=== PATIENT | female | born 1935 | race Caucasian/White ===

== ENCOUNTER 2017-09-03 09:51 | Emergency (ER) | payer MEDICARE, MEDICAID ==
[2017-09-03 11:16] VITALS: BP 150/61
== END 2017-09-03 12:14 | disposition left against medical advice (07) ==
LOC: UCCORT 09:51
DX: R05 Cough (principal); Z53.21 Procedure and treatment not carried out due to patient leaving prior to being seen by health care provider

== ENCOUNTER 2017-09-03 12:45 | Emergency (ER) | payer MEDICARE, MEDICAID ==
[2017-09-03 16:41] VITALS: BP 141/61
--- NOTE | 2017-09-03 16:57 | UC ---
Skin Complaint HPI - HPI Summary HPI Summary: pt is accompanied by caregiver. caregiver reports that pt was observed scratching her head during the day. @. pt has "deep cough" throughout the day. No fever, or nasal congestion. - History of Current Complaint Chief Complaint: UCGeneralIllness Time Seen by Provider: 09/03/17 16:26 Stated Complaint: POSSIBLE LICE,COUGH Hx Obtained From: Family/Extender Hx From Patient Unobtainable Due To: Other - preexisting cognitive ability Hx Last Menstrual Period: n/a ?: No Onset/Duration: Sudden Onset - pruritic skin, Gradual Onset - cough, Lasting Days - cough Skin Exposure Onset/Duration: Days Ago Timing: Intermittent Episodes Lasting: Onset Severity: Mild Current Severity: Mild Character: Pruritus Aggravating Factor(s): Nothing Alleviating Factor(s): Unknown Associated Signs & Symptoms: Positive: Cough - Allergy/Home Medications Allergies/Adverse Reactions: Allergies Allergy/AdvReac Type Severity Reaction Status Date / Time No Known Allergies Allergy Verified 09/03/17 16:23 Home Medications: Home Medications Acetaminophen [Acetaminophen Extra Stren] 500 mg PO Q4H PRN 09/03/17 [History Confirmed 09/03/17] Ibuprofen TAB* [Advil TAB*] 200 mg PO Q6H PRN 09/03/17 [History Confirmed ] Melatonin 3 mg PO BEDTIME 09/03/17 [History Confirmed 09/03/17] Review of Systems Constitutional: Negative Skin: Other - scratching scalp, concern for lice Eyes: Negative ENT: Negative Respiratory: Cough Cardiovascular: Negative Gastrointestinal: Negative Genitourinary: Negative Motor: Negative Neurovascular: Negative Musculoskeletal: Negative Neurological: Negative Psychological: Negative Is Patient Immunocompromised?: No All Other Systems Reviewed And Are Negative: Yes PMH/Surg Hx/FS Hx/Imm Hx Previously Healthy: Yes Psychological History: Other - prexisting cognitive dysfunction Other Psychological History: preexisting cognitive dysfunction - Surgical History Surgical History: None Surgery Procedure, Year, and Place: UNKNOWN - Family History Known Family History: Positive: Cardiac Disease - Social History Occupation: Disabled Lives: Nursing Home Alcohol Use: None Substance Use Type: None Smoking Status (MU): Never Smoked Tobacco Have You Smoked in the Last Year: No - Immunization History Most Recent Tetanus Shot: 2007 Vaccination Up to Date: Yes Physical Exam Triage Information Reviewed: Yes Appearance: Well-Appearing Vital Signs: Initial Vital Signs Pulse 92 09/03/17 16:36 Resp 22 09/03/17 16:36 BP 141/61 09/03/17 16:36 Pulse Ox 99 09/03/17 16:36 Vital Signs Reviewed: Yes Eye Exam: Normal ENT Exam: Normal Respiratory Exam: Other Respiratory: Positive: Normal breath sounds, No respiratory distress Cardiovascular Exam: Normal Musculoskeletal Exam: Other Musculoskeletal: Positive: ROM Limited @ - generalized Neurological Exam: Normal Neurological: Positive: Other: - preexisitng Psychological Exam: Other - at baseline Skin Exam: Normal Course/Dx - Differential Diagnoses - Skin Complaint Differential Diagnoses: Other - itchy skin - Diagnoses Provider Diagnoses: cough- viral syndrome. itchy skin-scalp Discharge - Discharge Plan Condition: Stable Disposition: HOME Patient Education Materials: Itchy Skin (ED), Acute Cough (ED) Referrals: Judit Braxton MD [Primary Care Provider] - If Needed
== END 2017-09-03 16:56 | disposition home or self-care (01) ==
LOC: UCCORT 12:45
DX: B34.9 Viral infection, unspecified (principal); R05 Cough; L29.9 Pruritus, unspecified; G31.84 Mild cognitive impairment of uncertain or unknown etiology
CPT/HCPCS: 99211; G0463

== ENCOUNTER 2018-05-17 15:01 | Emergency (ER) | payer MEDICARE, MEDICAID ==
[2018-05-17 16:07] VITALS: BP 142/70
--- NOTE | 2018-05-17 16:21 | UC ---
Respiratory Complaint HPI - HPI Summary HPI Summary: One day of productive cough.skilled nursing resident, here with an aide who has only been with her since noon. Hx of COPD with regular use of inhalers--pulmicort and albuterol. No fever, preceding URI, vomiting or diarrhea. No infectious exposure and no other residents have a similar illness. Mild decrease in appetite noted. Does not at this time have an advance directive. - History of Current Complaint Chief Complaint: UCRespiratory Stated Complaint: COUGH Time Seen by Provider: 05/17/18 15:53 Hx Obtained From: Family/[employer] Hx Last Menstrual Period: n/a Onset/Duration: Sudden Onset, Lasting Hours - onset this morning. Timing: Intermittent Episodes Severity Initially: Mild Severity Currently: Mild Pain Intensity: 0 Character: Cough: Productive Aggravating Factors: Nothing Alleviating Factors: Bronchodilator Associated Signs And Symptoms: Positive: Negative - Risk Factors Pulmonary Embolism Risk Factors: Negative Cardiac Risk Factors: Hypertension Pseudomonas Risk Factors: Chronic Lung Disease - Allergies/Home Medications Allergies/Adverse Reactions: Allergies Allergy/AdvReac Type Severity Reaction Status Date / Time No Known Allergies Allergy Verified 05/17/18 15:57 Home Medications: Home Medications LORazepam TAB(*) [Ativan 1 MG TAB (*)] 1 tab SEE INSTRUCTIONS 05/17/18 [History Confirmed 05/17/18] PMH/Surg Hx/FS Hx/Imm Hx Cardiovascular History: Hypertension Respiratory History: COPD Neurological History: Dementia Psychological History: Other Other Psychological History: dementia - Surgical History Surgical History: None Surgery Procedure, Year, and Place: UNKNOWN - Family History Known Family History: Positive: Cardiac Disease - Social History Alcohol Use: None Substance Use Type: None Smoking Status (MU): Never Smoked Tobacco Have You Smoked in the Last Year: No - Immunization History Most Recent Tetanus Shot: 2011 Vaccination Up to Date: Yes Review of Systems Constitutional: Negative Skin: Negative Eyes: Negative ENT: Negative Respiratory: Cough - no apparent change in breathing rate. Cardiovascular: Negative Gastrointestinal: Negative Genitourinary: Negative Motor: Negative Neurovascular: Negative Musculoskeletal: Other: - has splints on forearms, mild contractures. Wheelchair bound. Neurological: Other - cognitive decline. Psychological: Negative All Other Systems Reviewed And Are Negative: Yes Physical Exam Triage Information Reviewed: Yes Completion Of Physical Exam Limited Due To: Dementia Appearance: Ill-Appearing - Elderly woman, looks chronically unwell, but not in acute distress. Alert, averbal. Wheelchair bound. Vital Signs: Initial Vital Signs Temp 98.8 F 05/17/18 15:57 Pulse 65 05/17/18 15:57 Resp 24 05/17/18 15:57 BP 142/70 05/17/18 15:57 Pulse Ox 99 05/17/18 15:57 Eyes: Positive: Conjunctiva Clear ENT: Positive: Pharynx normal Neck: Positive: Supple, Nontender, No Lymphadenopathy Respiratory: Positive: Lungs clear, Normal breath sounds, No respiratory distress - No crackles, wheeze, coarse breath sounds, breathing comfortably. Cardiovascular: Positive: RRR, No Murmur Neurological Exam: Other - averbal, poor truncal support. Skin Exam: Normal UC Diagnostic Evaluation - Laboratory O2 Sat by Pulse Oximetry: 99 Respiratory Course/Dx - Course Course Of Treatment: Likely viral illness, with stable vitals. Continue use of pulmicort and albuterol, observe for changes. No indication for antibiotics at this time. - Differential Dx/Diagnosis Provider Diagnoses: COPD, URI Discharge - Sign-Out/Discharge Documenting (check all that apply): Patient Departure - Discharge Plan Condition: Stable Disposition: HOME Patient Education Materials: COPD (Chronic Obstructive Pulmonary Disease) (ED) Referrals: Judit Braxton MD [Primary Care Provider] - Additional Instructions: At the time of assessment, there are no signs of respiratory distress. Current management of COPD to continue, with use of albuterol and pulmicort via nebulizer. Follow up as needed. Signs that a revisi is indicated include increase in breathing rate, decreased appetite, onset of vomiing, decreasing oxygen saturations. - Billing Disposition and Condition Condition: STABLE Disposition: Home
== END 2018-05-17 16:43 | disposition home or self-care (01) ==
LOC: UCCORT 15:01
DX: J44.9 Chronic obstructive pulmonary disease, unspecified (principal); J06.9 Acute upper respiratory infection, unspecified
CPT/HCPCS: 99212; G0463